=== PATIENT | female | born 1975 | race Caucasian/White ===

== ENCOUNTER → 2018-11-05 | Outpatient (CLI) | payer BC | END | disposition home or self-care (01) | LOC: LAB 10:15 → LAB SHORT 10:15 | PROVIDERS: Internal Medicine | DX: Z01.419 Encounter for gynecological examination (general) (routine) without abnormal findings (principal) | CPT/HCPCS: 87624; G0145 ==

== ENCOUNTER 2019-03-18 09:33 | Day surgery (SDC) | payer BC ==
[~2019-03-18] VITALS: Ht 165.1 cm; Wt 51.7 kg
[~2019-03-18 09:33] MED LIST: Bentyl10 MG/ML; CELE100; CLOB.05TO; OMEPRAZOLE20 MG
--- NOTE | 2019-03-18 11:57 | NUR ---
03/18/19 Pedro Luis Story WHEN ASKED IF THE PATIENT WANTED SOMETHING TO DRINK AFTER PROCEDURE THE PATIENT DECLINED. NURSE OFFERED AGAIN ONCE PATIENT WAS IN RECLINER AND PATIENT DECLINED AGAIN.
== END 2019-03-18 11:43 | disposition home or self-care (01) ==
LOC: ORSCSDS 09:33
PROVIDERS: Student in an Organized Health Care Education/Training Program
PROC: 0DB58ZX Excision of Esophagus, Via Natural or Artificial Opening Endoscopic, Diagnostic (ICD-10-PCS; principal; 2019-03-18 10:45)
PROC: 0DB68ZX Excision of Stomach, Via Natural or Artificial Opening Endoscopic, Diagnostic (ICD-10-PCS; principal; 2019-03-18 10:45)
PROC: 0DB98ZX Excision of Duodenum, Via Natural or Artificial Opening Endoscopic, Diagnostic (ICD-10-PCS; principal; 2019-03-18 10:45)
DX: R63.4 Abnormal weight loss (principal); K31.7 Polyp of stomach and duodenum; K29.70 Gastritis, unspecified, without bleeding; R10.13 Epigastric pain; F41.9 Anxiety disorder, unspecified; D47.3 Essential (hemorrhagic) thrombocythemia; Z79.899 Other long term (current) drug therapy
CPT/HCPCS: 84703; 88305; 88342; J2704; J7120